=== PATIENT | female | born 1935 | race Caucasian/White ===

== ENCOUNTER 2017-04-23 08:00 | Outpatient (CLI) | payer MEDICARE | END 2017-04-23 08:01 | disposition home or self-care (01) | LOC: BICMAMMO 08:00 | PROVIDERS: ATTEND Surgery | DX: Z12.31 Encounter for screening mammogram for malignant neoplasm of breast (principal); Z85.3 Personal history of malignant neoplasm of breast; R92.1 Mammographic calcification found on diagnostic imaging of breast | CPT/HCPCS: 77063 ==

== ENCOUNTER 2018-04-29 11:05 | Outpatient (CLI) | payer MEDICARE | END 2018-04-29 11:06 | disposition home or self-care (01) | LOC: BICMAMMO 11:05 | PROVIDERS: ATTEND Surgery | DX: Z12.31 Encounter for screening mammogram for malignant neoplasm of breast (principal) | CPT/HCPCS: 77063; 77067 ==

== ENCOUNTER 2018-10-01 12:24 | Outpatient (CLI) | payer MEDICARE ==
--- NOTE | 2018-10-01 12:58 | RAD ---
LEFT KNEE 2 VIEWS: HISTORY: Left knee pain. Unilateral primary osteoarthritis of the left knee FINDINGS: Mild degenerative changes are seen most prominent in the medial tibiofemoral compartment. N o fracture dislocation or bony destruction is identified. No joint effusion is noted. There are vascular calcifications. IMPRESSION: left knee osteoarthritis.
== END 2018-10-01 12:25 | disposition home or self-care (01) ==
LOC: BICRAD 12:24
PROVIDERS: ATTEND Internal Medicine Rheumatology
DX: M17.12 Unilateral primary osteoarthritis, left knee (principal)

== ENCOUNTER 2019-05-09 10:49 | Outpatient (CLI) | payer MEDICARE ==
--- NOTE | 2019-05-09 11:43 | MMO ---
Bilateral MAMMO Bilat Screen [facility]. CLINICAL HISTORY: Patient is 83 years old and is seen for screening. The patient has no family history of breast cancer. The patient has a history of left Mastectomy at age 57 - malignant. VIEWS: The views performed were: bilateral craniocaudal with tomosynthesis and bilateral mediolateral oblique with tomosynthesis. FILMS COMPARED: The present examination has been compared to prior imaging studies performed at [facility] on 03/12/2015, 04/13/2016, 04/23/2017 and 04/29/2018. This study has been interpreted with the assistance of computer-aided detection. MAMMOGRAM FINDINGS: There are scattered fibroglandular densities. There are stable benign appearing calcifications seen in the right breast. There are no suspicious masses, suspicious calcifications, or new areas of architectural distortion. IMPRESSION: THERE IS NO MAMMOGRAPHIC EVIDENCE OF MALIGNANCY. A ROUTINE FOLLOW-UP MAMMOGRAM IN 1 YEAR IS RECOMMENDED. THE RESULTS OF THIS EXAM WERE SENT TO THE PATIENT. ACR BI-RADS Category 2 - Benign finding MAMMOGRAPHY NOTE: 1. A negative mammogram report should not delay a biopsy if a dominant of clinically suspicious mass is present. 2. Approximately 10% to 15% of breast cancers are not detected by mammography. 3. Adenosis and dense breasts may obscure an underlying neoplasm. Reported by: MILES ABBOTT MD Electonically Signed: [id number]
== END 2019-05-09 10:50 | disposition home or self-care (01) ==
LOC: BICMAMMO 10:49
PROVIDERS: ATTEND Surgery
DX: Z12.31 Encounter for screening mammogram for malignant neoplasm of breast (principal); Z90.12 Acquired absence of left breast and nipple
CPT/HCPCS: 77063; 77067

== ENCOUNTER 2020-01-02 09:45 | Outpatient (CLI) | payer MEDICARE, OTHER ==
--- NOTE | 2020-01-02 14:46 | NM ---
NM Bone Scan Three Phase History: Right knee pain Comparison: None. Findings: Blood flow, blood pool, and static delayed images were obtained after the intravenous admin istration 30.9 mCi technetium 99m MDP. No abnormal blood flow nor blood pooling along either knee. On the delayed phase there is abnormal in creased or tracer uptake of the femoral and tibial side of right knee arthroplasty. No significant abnormal uptake in th left knee. Impression: Abnormal increased radiotracer uptake along the femoral and tibial side of the right knee arthroplasty indicating degenerative change without evidence for infection.
== END 2020-01-02 09:46 | disposition home or self-care (01) ==
LOC: NM 09:45
PROVIDERS: ATTEND Family Medicine Sports Medicine
DX: M25.561 Pain in right knee (principal); Z96.651 Presence of right artificial knee joint; R93.7 Abnormal findings on diagnostic imaging of other parts of musculoskeletal system
CPT/HCPCS: 78315; A9503

== ENCOUNTER 2020-05-11 10:48 | Outpatient (CLI) | payer MEDICARE, OTHER ==
--- NOTE | 2020-05-11 11:37 | MMO ---
Bilateral MAMMO Bilat Screen [facility]. CLINICAL HISTORY: Patient is 84 years old and is seen for screening. The patient has no family history of breast cancer. The patient has a history of left Mastectomy at age 57 - malignant. VIEWS: The views performed were: right craniocaudal with tomosynthesis and right mediolateral oblique with tomosynthesis. FILMS COMPARED: The present examination has been compared to prior imaging studies performed at [facility] on 04/13/2016, 04/23/2017, 04/29/2018 and 05/09/2019. This study has been interpreted with the assistance of computer-aided detection. MAMMOGRAM FINDINGS: There are scattered fibroglandular densities. There are stable benign appearing calcifications seen in the right breast. There are no suspicious masses, suspicious calcifications, or new areas of architectural distortion. IMPRESSION: THERE IS NO MAMMOGRAPHIC EVIDENCE OF MALIGNANCY. A ROUTINE FOLLOW-UP MAMMOGRAM IN 1 YEAR IS RECOMMENDED. THE RESULTS OF THIS EXAM WERE SENT TO THE PATIENT. ACR BI-RADS Category 2 - Benign finding MAMMOGRAPHY NOTE: 1. A negative mammogram report should not delay a biopsy if a dominant of clinically suspicious mass is present. 2. Approximately 10% to 15% of breast cancers are not detected by mammography. 3. Adenosis and dense breasts may obscure an underlying neoplasm. Reported by: YURY PERDOMO MD Electonically Signed: [id number]
== END 2020-05-11 10:49 | disposition home or self-care (01) ==
LOC: BICMAMMO 10:48
PROVIDERS: ATTEND Surgery
DX: Z12.31 Encounter for screening mammogram for malignant neoplasm of breast (principal); Z90.12 Acquired absence of left breast and nipple
CPT/HCPCS: 77063; 77067

== ENCOUNTER 2021-05-19 11:01 | Outpatient (CLI) | payer MEDICARE | END 2021-05-19 11:02 | disposition home or self-care (01) | LOC: BICMAMMO 11:01 | PROVIDERS: ATTEND Surgery | DX: Z12.31 Encounter for screening mammogram for malignant neoplasm of breast (principal); Z85.3 Personal history of malignant neoplasm of breast; Z90.12 Acquired absence of left breast and nipple | CPT/HCPCS: 77063; 77067 ==

== ENCOUNTER 2022-01-17 10:22 | Outpatient (CLI) | payer OTHER | END 2022-01-17 10:23 | disposition home or self-care (01) | LOC: DTY/OP 10:22 | PROVIDERS: ATTEND Family Medicine | DX: E11.42 Type 2 diabetes mellitus with diabetic polyneuropathy (principal); Z71.3 Dietary counseling and surveillance | CPT/HCPCS: 97802 ==

== ENCOUNTER 2022-07-27 11:49 | Outpatient (CLI) | payer MEDICARE | END 2022-07-27 11:50 | disposition home or self-care (01) | LOC: BICMAMMO 11:49 | PROVIDERS: ATTEND Surgery | DX: Z12.31 Encounter for screening mammogram for malignant neoplasm of breast (principal); R92.1 Mammographic calcification found on diagnostic imaging of breast; Z91.89 Other specified personal risk factors, not elsewhere classified; Z90.12 Acquired absence of left breast and nipple | CPT/HCPCS: 77063; 77067 ==